=== PATIENT | male | born 1960 | race Caucasian/White ===

== ENCOUNTER 2018-10-30 08:07 | Inpatient (IN) | payer BC ==
[~2018-10-30 08:07] MED LIST: Acetaminophen 325 MG Tab PO SCH; EPINEPHrine 1 MG/ML SDV ONE; Lactated Ringers 1,000 ML IV SCH; Lidocaine 1%/Sod Bicarbonate in NS 8.4% 1 ML Syringe IDERM PRN; Midazolam 1 MG/ML 2 ML SDV ONE; Pregabalin 25 MG Cap PO SCH; Propofol 200 MG/20 ML SDV ONE; Ropivacaine 0.5% 5 MG/ML 30 ML SDV ONE; Sodium Chloride 0.9% 10 ML Syringe FLUSH PRN; fentaNYL 100 MCG/2 ML SDV ONE; oxyCODONE ER 10 MG TAB.ER PO SCH
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
[2018-10-30] MEDS ORDERED: Sennosides 8.6 MG Tab PO PRN (08:56)
[2018-10-30] MEDS ORDERED: Ketorolac 30 MG/ML SDV IVPUSH PRN (08:56)
[2018-10-30] MEDS ORDERED: Magnesium Hydroxide 400 MG/5 ML Susp 30 ML Cup PO PRN (08:56)
[2018-10-30] MEDS ORDERED: Docusate Sodium 100 MG Cap PO PRN (08:56)
[2018-10-30] MEDS ORDERED: Naloxone 0.4 MG/ML SDV IVPUSH PRN (08:56)
[2018-10-30] MEDS ORDERED: Ondansetron 4 MG/2 ML SDV IVPUSH PRN ×2 (08:56→10:28)
[2018-10-30] MEDS ORDERED: diphenhydrAMINE 50 MG/ML SDV IVPUSH PRN ×2 (08:56→10:28)
[2018-10-30] MEDS ORDERED: Bisacodyl 5 MG Tab PO PRN (08:56)
[2018-10-30] MEDS ORDERED: Cyclobenzaprine 10 MG Tab PO PRN (08:56)
[2018-10-30] MEDS ORDERED: ceFAZolin 1 GM Vial ONE (09:19)
[2018-10-30] MEDS: ceFAZolin 1 GM Vial ONE ×2 (09:44→10:02)
[2018-10-30] MEDS: Iodine/Sodium Iodide 2% Tincture 30 ML Bottle ONE ×2 (09:44→09:59)
[2018-10-30] MEDS: Morphine 8 MG, EPINEPHrine 0.3 MG, Cefuroxime 750 MG, Ketorolac 30 MG, Sodium Chloride ... ONE ×15 (09:45→12:51)
[2018-10-30] MEDS: Bupivacaine 0.25% 30 ML SDV ONE ×2 (09:46→10:10)
[2018-10-30] MEDS: Vancomycin 1 GM SDV ONE ×2 (09:46→10:11)
[2018-10-30] MEDS: Triamcinolone Acetonide 40 MG/ML 1 ML MDV ONE ×2 (09:47→10:33)
[2018-10-30] MEDS: Bupivacaine 0.25% 10 ML SDV ONE ×2 (09:48→10:33)
[2018-10-30] MEDS ORDERED: TADALAFIL 20 MG PO PRN (10:04)
[2018-10-30] MEDS ORDERED: Ketorolac 30 MG/ML SDV ONE (10:23)
[2018-10-30] MEDS ORDERED: fentaNYL 100 MCG/2 ML SDV IVPUSH PRN (10:28)
[2018-10-30] MEDS ORDERED: Meperidine 50 MG/ML Vial IVPUSH ONE (10:28)
--- NOTE | 2018-10-30 10:49 | PCM.POSTAN ---
POST ANESTHESIA ASSESSMENT - MENTAL STATUS Mental Status: Alert, Oriented - VITAL SIGNS Pulse Rate: 82 SaO2: 95 Resp Rate: 14 Blood Pressure: 108/70 Temperature: 36.7 C - RESPIRATORY Respiratory Status: Respiratory Rate WNL, Airway Patent, O2 Saturation Stable, Supplemental Oxygen - CARDIOVASCULAR CV Status: Pulse Rate WNL, Blood Pressure Stable - GASTROINTESTINAL GI Status: No Symptoms - PAIN Pain Score: 0 - POST OP HYDRATION Hydration Status: Adequate & Stable
--- NOTE | 2018-10-30 11:19 | PCM.SN ---
- Free Text/Narrative Note: Right ultrasound guided selective femoral nerve block at the adductor canal for post-procedure pain control Time Out: 1104 Start: 1108 End: 1111 Chart reviewed. Consent signed. Questions answered. Appropriate monitors applied. Time out performed. Right mid-shaft femur evaluated with ultrasound. Scanning medially femur, I was able to identify the femoral artery in the adductor canal. The saphenous nerve was lateral to the artery. The skin was prepped lateral to the ultrasound probe with chlorahexadine. The 21ga 4 insulated block needle was inserted under direct ultrasound guidance into the adductor canal. 20mL of 0.5% ropivacaine with 1:200,000 epinephrine was injected cirmcumferentially about the nerve with intermittent negative aspiration every 5mL. Patient tolerated the procedure well. See pictures on progress note and vital signs on nurses notes. Block completed postoperatively. Kody Valdes CRNA
--- NOTE | 2018-10-30 11:37 | CR ---
Right knee: AP and lateral portable views of the right knee were obtained. Comparison: No prior right knee exam. Knee prosthesis is seen. Components are aligned. Underlying bony structures are intact. Soft tissue air is noted from the surgical procedure. Impression: 1. Satisfactory postop radiographic appearance of recently placed right knee prosthesis. Diagnostic code #2
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
[2018-10-30] MEDS: ceFAZolin 2 GM in Premix Bag 1 BAG IV SCH (17:01)
[2018-10-30] MEDS: Acetaminophen/HYDROcodone 325-5 MG Tab PO PRN ×2 (17:03→23:50)
[2018-10-30] MEDS ORDERED: tiZANidine 4 MG Tab PO SCH (21:00)
[2018-10-30] MEDS ORDERED: Simvastatin 20 MG Tab PO SCH (21:00)
[2018-10-30] MEDS: Famotidine 20 MG Tab PO SCH (21:19)
[2018-10-31] MEDS: ceFAZolin 2 GM in Premix Bag 1 BAG IV SCH ×2 (01:56→08:45)
--- NOTE | 2018-10-31 06:30 | PCM.CONSN ---
- General Info Date of Service: 10/31/18 Admission Dx/Problem (Free Text): Admission Diagnosis/Problem Admission Diagnosis/Problem Arthritis of right knee Functional Status: Reports: Pain Controlled, Tolerating Diet, Ambulating, Urinating. Denies: New Symptoms - Review of Systems General: Reports: No Symptoms. Denies: Fever, Malaise, Chills HEENT: Reports: No Symptoms. Denies: Headaches, Sore Throat Pulmonary: Reports: No Symptoms. Denies: Shortness of Breath, Pleuritic Chest Pain, Cough, Sputum, Wheezing Cardiovascular: Reports: No Symptoms. Denies: Chest Pain, Palpitations, Dyspnea on Exertion, Lightheadedness Gastrointestinal: Reports: No Symptoms. Denies: Abdominal Pain, Constipation, Diarrhea, Nausea, Vomiting Genitourinary: Reports: No Symptoms. Denies: Pain Musculoskeletal: Reports: Leg Pain Skin: Reports: No Symptoms Neurological: Reports: No Symptoms Psychiatric: Reports: No Symptoms - Patient Data Vitals - Most Recent: Last Vital Signs Temp 97.9 F 10/31/18 04:55 Pulse 73 10/31/18 04:55 Resp 16 10/31/18 04:55 BP 103/67 10/31/18 04:55 Pulse Ox 95 10/31/18 04:55 Weight - Most Recent: 218 lb 8 oz I&O - Last 24 Hours: Intake & Output 10/30/18 10/30/18 10/31/18 14:59 22:59 06:59 Intake Total 651 532 0473 Balance [phone] Med Orders - Current: Current Medications Hydrocodone Bitart/Acetaminophen ([place] 325-5 Mg) 2 tab PO Q6H PRN PRN Reason: Pain Last Admin: 10/30/18 23:50 Dose: 2 tab Aspirin (Ecotrin) 325 mg PO BID [facility] Bisacodyl (Dulcolax) 10 mg PO DAILY PRN PRN Reason: Constipation Cyclobenzaprine HCl (Flexeril) 10 mg PO TID PRN PRN Reason: Muscle Spasm Diphenhydramine HCl (Benadryl) 25 mg IVPUSH Q4H PRN PRN Reason: Nausea Docusate Sodium (Colace) 100 mg PO BID PRN PRN Reason: Constipation Famotidine (Pepcid) 20 mg PO Q12H [facility] Last Admin: 10/30/18 21:19 Dose: 20 mg Cefazolin Sodium/Dextrose 2 gm (/ Premix) 50 mls @ 100 mls/hr IV Q8H [facility] Stop: 10/31/18 09:59 Last Admin: 10/31/18 01:56 Dose: 100 mls/hr Ketorolac Tromethamine (Toradol) 30 mg IVPUSH Q8H PRN PRN Reason: Pain Last Admin: 10/30/18 21:21 Dose: 30 mg Magnesium Hydroxide (Milk Of Magnesia) 30 ml PO BID PRN PRN Reason: Constipation Multivitamins (Thera) 1 each PO DAILY [facility] Naloxone HCl (Narcan) 0.1 mg IVPUSH Q5M PRN PRN Reason: Oversedation Ondansetron HCl (Zofran) 4 mg IVPUSH Q6H PRN PRN Reason: Nausea/Vomiting Fluticasone Propionate Nasal [place] 0 each NASBOTH DAILY PRN PRN Reason: as directed Ropinirole HCl (Requip) 4 mg PO DAILY [facility] Senna (Senna) 8.6 mg PO BID PRN PRN Reason: Constipation Simvastatin (Zocor) 20 mg PO BEDTIME [facility] Last Admin: 10/30/18 21:20 Dose: 20 mg Tizanidine HCl (Zanaflex) 4 mg PO BEDTIME [facility] Last Admin: 10/30/18 21:19 Dose: 4 mg Discontinued Medications Acetaminophen (Tylenol) 975 mg PO ONETIME [facility] Stop: 10/30/18 12:00 Last Admin: 10/30/18 08:22 Dose: 975 mg Bupivacaine HCl (Sensorcaine-Mpf 0.25%) Confirm Administered Dose 10 ml .ROUTE .STK-MED ONE Stop: 10/30/18 08:13 Last Admin: 10/30/18 10:33 Dose: 4 ml Bupivacaine HCl (Marcaine 0.25%) Confirm Administered Dose 30 ml .ROUTE .STK- MED ONE Stop: 10/30/18 08:13 Last Admin: 10/30/18 10:10 Dose: 30 ml Cefazolin Sodium (Ancef) Confirm Administered Dose 2 gm .ROUTE .STK-MED ONE Stop: 10/30/18 08:13 Last Admin: 10/30/18 10:02 Dose: 2 gm Cefazolin Sodium (Ancef) Confirm Administered Dose 2 gm .ROUTE .STK-MED ONE Stop: 10/30/18 09:20 Morphine Sulfate 8 mg/Epinephrine HCl 0.3 mg/Cefuroxime Sodium 750 mg/Ketorolac Tromethamine 30 mg/Sodium Chloride 17.9 ml 0 mg .XX ONETIME ONE Stop: 10/30/18 10:01 Last Admin: 10/30/18 12:51 Dose: Not Given Diphenhydramine HCl (Benadryl) 25 mg IVPUSH Q6H PRN PRN Reason: Pruritis Stop: 10/30/18 14:00 Epinephrine HCl (Adrenalin) Confirm Administered Dose 1 mg .ROUTE .STK-MED ONE Stop: 10/30/18 07:20 Fentanyl (Sublimaze) Confirm Administered Dose 100 mcg .ROUTE .STK-MED ONE Stop: 10/30/18 08:04 Fentanyl (Sublimaze) 50 mcg IVPUSH Q5M PRN PRN Reason: Pain Stop: 10/30/18 14:00 Lactated Ringer's (Ringers, Lactated) 1,000 mls @ 125 mls/hr IV ASDIRECTED [facility] Stop: 10/30/18 23:00 Last Admin: 10/30/18 08:25 Dose: 125 mls/hr Iodine (Iodine 2% Mild Tincture) Confirm Administered Dose 30 ml .ROUTE .STK- MED ONE Stop: 10/30/18 08:13 Last Admin: 10/30/18 09:59 Dose: 18 ml Ketorolac Tromethamine (Toradol) Confirm Administered Dose 30 mg .ROUTE .STK- MED ONE Stop: 10/30/18 10:24 Lidocaine/Sodium Bicarbonate (Buffered Lidocaine 1% In Ns 8.4%) 0.25 ml IDERM ONETIME PRN PRN Reason: Prior to IV Start Stop: 10/30/18 15:00 Last Admin: 10/30/18 08:52 Dose: 0.25 ml Meperidine HCl (Meperidine) 12.5 mg IVPUSH ONETIME ONE Stop: 10/30/18 10:29 Last Admin: 10/30/18 12:51 Dose: Not Given Midazolam HCl (Versed 1 Mg/Ml) Confirm Administered Dose 2 mg .ROUTE .STK-MED ONE Stop: 10/30/18 08:04 Non-Formulary Medication (Tadalafil [Cialis]) 20 mg PO ASDIRECTED PRN PRN Reason: prior to sexual activity Ondansetron HCl (Zofran) 4 mg IVPUSH ONETIME PRN PRN Reason: Nausea/Vomiting Stop: 10/30/18 14:00 Oxycodone HCl (Oxycontin) 10 mg PO ONETIME [facility] Stop: 10/30/18 18:00 Last Admin: 10/30/18 08:20 Dose: 10 mg Pregabalin (Lyrica) 50 mg PO ONETIME [facility] Stop: 10/30/18 15:00 Last Admin: 10/30/18 08:20 Dose: 50 mg Propofol (Diprivan 20 Ml) Confirm Administered Dose 600 mg .ROUTE .STK-MED ONE Stop: 10/30/18 08:04 Ropivacaine (Naropin 0.5%) Confirm Administered Dose 30 ml .ROUTE .STK-MED ONE Stop: 10/30/18 07:21 Sodium Chloride (Saline Flush) 10 ml FLUSH ASDIRECTED PRN PRN Reason: Keep Vein Open Stop: 10/30/18 18:00 Tranexamic Acid (Cyklokapron) Confirm Administered Dose 1,000 mg .ROUTE .STK- MED ONE Stop: 10/30/18 08:13 Last Admin: 10/30/18 10:15 Dose: 1,000 mg Triamcinolone Acetonide (Kenalog-40) Confirm Administered Dose 80 mg .ROUTE .STK -MED ONE Stop: 10/30/18 08:13 Last Admin: 10/30/18 10:33 Dose: 80 mg Vancomycin HCl (Vancomycin) Confirm Administered Dose 1 gm .ROUTE .STK-MED ONE Stop: 10/30/18 08:13 Last Admin: 10/30/18 10:11 Dose: 1 gm - Exam Quality Assessment: DVT Prophylaxis General: Alert, Oriented, Cooperative, No Acute Distress HEENT: Pupils Equal, Pupils Reactive, EOMI, Mucous Membr. Moist/[place] Neck: Supple, Trachea Midline, No JVD Lungs: Clear to Auscultation, Normal Respiratory Effort Cardiovascular: Regular Rate, Regular Rhythm GI/Abdominal Exam: Normal Bowel Sounds, Soft, Non-Tender, No Distention, No Abnormal Bruit (Male) Exam: Deferred Back Exam: Normal Inspection, Full Range of Motion Extremities: No Pedal Edema, Normal Capillary Refill, Leg Pain, Limited Range of Motion, Other (Bandage in place on right leg. Cooling pack in place. ) Peripheral Pulses: 2+: Radial (L), Radial (R), Dorsalis Pedis (L), Dorsalis Pedis (R) Skin: Warm, Dry, Intact Wound/Incisions: Dressing Dry and Intact, No Drainage Neurological: No New Focal Deficit Psy/Mental Status: Alert, Normal Affect, Normal Mood Consult PN Assessment/Plan POD#: 1 Procedures: Procedures CARDIOVASCULAR STRESS TEST (11/14/17) HT MUSCLE IMAGE SPECT MULT (11/14/17) (1) S/P total knee arthroplasty SNOMED Code(s): 8777634849063, 505169910, 2525122154818 Code(s): Z96.659 - PRESENCE OF UNSPECIFIED ARTIFICIAL KNEE JOINT Priority: High Current Visit: Yes Qualifiers: Laterality: right Qualified Code(s): Z96.651 - Presence of right artificial knee joint (2) New onset type 2 diabetes mellitus SNOMED Code(s): 81283552 Code(s): E11.9 - TYPE 2 DIABETES MELLITUS WITHOUT COMPLICATIONS Priority: High Current Visit: Yes (3) Tobacco use disorder SNOMED Code(s): 553366164 Code(s): F17.200 - NICOTINE DEPENDENCE, UNSPECIFIED, UNCOMPLICATED Priority : High Current Visit: Yes Problem List Initiated/Reviewed/Updated: Yes Plan: I/P: Acute: S/P right total knee arthoplasty- post-operative day 1 -DVT prophylaxis and pain management per primary care team -PT/OT -IS/RT -Monitor oxygen saturation -Titrate oxygen as needed -Vital signs stable -Monitor labs -Pre-operative Hgb 14.7; Now -Pre-operative eGFR 88; Now >60 S/P left knee steroid injection -Management per primary team Osteoarthritis -Pain management per primary team Tobacco Dependence -Current every day smoker -Smoking cessation counseling -Nicotine patch--> states he does not need New onset diabetes -Reports no history of high blood sugars, no diabetic history -Glucose this AM noted to be 259 -A1C obtained - 6.5% -Discussed starting metformin with Dr. Vidales. Would like to hold off until follow-up -Will need f/u with PCP -Will need outpatient emt/paramedic and diabetic ed consult Chronic: HLD JOSELITO GERD RLS TIA [id number] Laminectomy Back Pain Plan: CM for discharge planning Routine AM labs GI/DVT/PE prophylaxis Home medications as indicated Other orders as listed above Routine AM labs He is a full code. PCP is Dr. Cox. Overall from a hospitalist standpoint Doug is doing well. He has been ambulating and working with therapies. He has urinated and is off of oxygen. Pain is controlled. No nursing or patient concerns. He is cleared for discharge pending primary team and PT/OT agreement. We discussed his smoking status and he did request nicotine patches. This will be added to his discharge medications. He was given resources such as [facility] tobacco cessation and [place] [facility]. He is aware he will need to follow-up with his primary care for continued management. While here his blood sugars were noted to be very high as above. A1C was obtained and is 6.5%. Dr. Vidales was contacted and we discussed starting Doug on Metformin. Dr. Vidales suggested we have Doug follow-up with him and then he will re-check labs and set up appropriate follow- up. He will need to follow-up with Dr. Cox in 7-10 days. He will also need an outpatient surgical aide and emt/paramedic consult. Thank you for allowing us to participate in the care of this patient!
--- NOTE | 2018-10-31 08:30 | PCM48HPAN ---
Post Anesthesia Note - EVALUATION WITHIN 48HRS OF ANESTHETIC Vital Signs in Normal Range: Yes Patient Participated in Evaluation: Yes Respiratory Function Stable: Yes Airway Patent: Yes Cardiovascular Function Stable: Yes Hydration Status Stable: Yes Pain Control Satisfactory: Yes Nausea and Vomiting Control Satisfactory: Yes Mental Status Recovered: Yes - COMMENTS/OBSERVATIONS Free Text/Narrative:: Patient doing well resting in bed. Rested well last night. Pain in minimal ( rates 4-10). Feels that his block is still working yet.
[2018-10-31] MEDS: Famotidine 20 MG Tab PO SCH (08:41)
[2018-10-31 08:57] LABS: HEMOGLOBIN A1C 6.5 % (4.50-6.20)
[2018-10-31] MEDS ORDERED: Multivitamins,Therapeutic Tab PO SCH (09:00)
[2018-10-31] MEDS ORDERED: Aspirin 325 MG Tab.EC PO SCH (09:00)
[2018-10-31] MEDS ORDERED: rOPINIRole 1 MG Tab PO SCH (09:00)
[2018-10-31] MEDS: Acetaminophen/HYDROcodone 325-5 MG Tab PO PRN (11:40)
[2018-10-31] MEDS ORDERED: metFORMIN 500 MG Tab PO SCH (17:00)
--- NOTE | 2018-11-02 09:14 | PCM.OPNOTE ---
- General Post-Op/Procedure Note Date of Surgery/Procedure: 10/30/18 Operative Procedure(s): right total knee with left knee corticosteroid injection Pre Op Diagnosis: bilateral knee osteoarthrosis Post-Op Diagnosis: Same Anesthesia Technique: Local, MAC, Spinal Primary Surgeon: Naman Núñez Anesthesia Provider: Kody Valdes Certified Registered Nurse Anesthetist: Padma Damian EBL in mLs: 150 Complications: None Condition: Good Free Text/Narrative:: size 6 femur size 5 9mm 35x10
--- NOTE | 2018-11-02 10:39 | OR ---
DATE OF OPERATION: 10/30/2018 SURGEON: Naman Núñez MD OPERATION PERFORMED: Right total knee arthroplasty with left knee corticosteroid injection. PREOPERATIVE DIAGNOSIS: Bilateral knee osteoarthrosis. POSTOPERATIVE DIAGNOSIS: Bilateral knee osteoarthrosis. ANESTHESIA: Local MAC with spinal. ANESTHESIA PROVIDER: Kody Valdes. FREIGHT CALLER: Padma Damian LPN. ESTIMATED BLOOD LOSS: 150 mL. COMPLICATIONS: None. CONDITION: Stable. IMPLANT: 1. Sharon size 6 press-fit CR femur. 2. [place] size 5 press-fit tibial base plate. 3. Sharon size 9 mm CS polyethylene insert. 4. Sharon size 35 x 10 mm press-fit patella. DESCRIPTION OF PROCEDURE: The patient was identified in the preop holding area. Proper site was marked and identified by the surgeon. The patient was taken back to the operating theater. After adequate anesthesia, the patient's right lower extremity had a nonsterile tourniquet applied and it was sterilely prepped and draped in the usual sterile fashion. OR time-out was performed. The patient received 2 g IV Ancef. At this time, the right lower extremity was exsanguinated. Tourniquet was insufflated to 300 mmHg. Standard medial parapatellar incision was made. Medial parapatellar arthrotomy was created. Deep fibers of the MCL were raised and anterior fat pad was resected. At this time, attention was turned to the patella. Patella measured 24, it was resected to a 14 for 35 x 10 mm patella. Drill holes were then drilled and found to be in adequate position. The drill was then drilled in the distal femur and the intramedullary distal femoral cutting guide was then placed. 8 mm was resected off the distal femur and was found to be an adequate resection. Sizing guide was placed. It was found to be a size 6 press-fit CR femur that was shown on the implant record at the beginning of this dictation. The drill holes were drilled for the epicondylar axis using [place] line and epicondyles as reference. At this time, the 4-in - 1 cutting block was placed. An anterior posterior and anterior and posterior chamfer cuts were then completed. Attention was turned to the tibia. The posterior medial lateral retractors were placed. The extramedullary tibial guide was placed. It was placed in the old footprint of the ACL. It was aligned with the center of the ankle and 0 degrees of slope, 9 mm was then resected off the unaffected side. There was found to be an acceptable reduction. At this time, posterior osteophytes were removed along with medial and lateral meniscus. A trial implant was placed with a correct sized tibia that was mentioned at the beginning of the dictation. A [place] size 9 mm CS polyethylene insert was then placed. The patient's knee was brought through range of motion. The patella was tracking centrally and was stable to varus and valgus stress. Alignment was found to be roughly at 0 degrees. The tibia was stamped and drilled in proper rotation. The universal tibial base plate was impacted in place. Next, the Sharon size 6 press-fit CR femur impacted into place and the [place] size 9 mm CS polyethylene insert was placed. The patient's knee was brought into full extension. The patella was then press-fit in place at this time. Tourniquet was deflated. One liter dilute Betadine solution was irrigated through the knee along with 3 L of pulse lavage irrigation with Ancef. Periarticular injection was then completed. The patient's knee was brought through a range of motion. Knee was found to be stable to varus valgus stress, the patella was tracking centrally with full range of motion. At this time, a #2 barbed suture was used for closure of the medial parapatellar arthrotomy. Topical tranexamic acid was placed. 2-0 Vicryl was used subcutaneously, Prineo was used for the skin. The patient tolerated the procedure well and was sent to the PACU in stable condition. After this procedure was completed, the patient underwent a corticosteroid injection into the left knee. Under sterile technique, 2 mL of 40 mg Kenalog and 4 mL of 0.25% Marcaine were injected into the left knee. Patient tolerated that as well. KENDAL /[id number] TOBIAS
--- NOTE | 2018-11-02 14:47 | PCM.SURGPN ---
- General Info Date of Service: 10/31/18 POD#: 1 Functional Status: Reports: Pain Controlled, Tolerating Diet, Ambulating, Urinating, Incentive Spirometry - Patient Data Vitals - Most Recent: Last Vital Signs Temp 97.5 F 10/31/18 11:50 Pulse 77 10/31/18 11:50 Resp 20 10/31/18 11:50 BP 126/76 10/31/18 11:50 Pulse Ox 96 10/31/18 11:50 Weight - Most Recent: 218 lb 8 oz Med Orders - Current: Current Medications Discontinued Medications Acetaminophen (Tylenol) 975 mg PO ONETIME [facility] Stop: 10/30/18 12:00 Last Admin: 10/30/18 08:22 Dose: 975 mg Hydrocodone Bitart/Acetaminophen ([place] 325-5 Mg) 2 tab PO Q6H PRN PRN Reason: Pain Last Admin: 10/31/18 11:40 Dose: 2 tab Aspirin (Ecotrin) 325 mg PO BID [facility] Last Admin: 10/31/18 08:38 Dose: 325 mg Bisacodyl (Dulcolax) 10 mg PO DAILY PRN PRN Reason: Constipation Bupivacaine HCl (Sensorcaine-Mpf 0.25%) Confirm Administered Dose 10 ml .ROUTE .STK-MED ONE Stop: 10/30/18 08:13 Last Admin: 10/30/18 10:33 Dose: 4 ml Bupivacaine HCl (Marcaine 0.25%) Confirm Administered Dose 30 ml .ROUTE .STK- MED ONE Stop: 10/30/18 08:13 Last Admin: 10/30/18 10:10 Dose: 30 ml Cefazolin Sodium (Ancef) Confirm Administered Dose 2 gm .ROUTE .STK-MED ONE Stop: 10/30/18 08:13 Last Admin: 10/30/18 10:02 Dose: 2 gm Cefazolin Sodium (Ancef) Confirm Administered Dose 2 gm .ROUTE .STK-MED ONE Stop: 10/30/18 09:20 Morphine Sulfate 8 mg/Epinephrine HCl 0.3 mg/Cefuroxime Sodium 750 mg/Ketorolac Tromethamine 30 mg/Sodium Chloride 17.9 ml 0 mg .XX ONETIME ONE Stop: 10/30/18 10:01 Last Admin: 10/30/18 12:51 Dose: Not Given Cyclobenzaprine HCl (Flexeril) 10 mg PO TID PRN PRN Reason: Muscle Spasm Last Admin: 10/31/18 14:03 Dose: 10 mg Diphenhydramine HCl (Benadryl) 25 mg IVPUSH Q4H PRN PRN Reason: Nausea Diphenhydramine HCl (Benadryl) 25 mg IVPUSH Q6H PRN PRN Reason: Pruritis Stop: 10/30/18 14:00 Docusate Sodium (Colace) 100 mg PO BID PRN PRN Reason: Constipation Epinephrine HCl (Adrenalin) Confirm Administered Dose 1 mg .ROUTE .STK-MED ONE Stop: 10/30/18 07:20 Famotidine (Pepcid) 20 mg PO Q12H [facility] Last Admin: 10/31/18 08:41 Dose: 20 mg Fentanyl (Sublimaze) Confirm Administered Dose 100 mcg .ROUTE .STK-MED ONE Stop: 10/30/18 08:04 Fentanyl (Sublimaze) 50 mcg IVPUSH Q5M PRN PRN Reason: Pain Stop: 10/30/18 14:00 Lactated Ringer's (Ringers, Lactated) 1,000 mls @ 125 mls/hr IV ASDIRECTED [facility] Stop: 10/30/18 23:00 Last Admin: 10/30/18 08:25 Dose: 125 mls/hr Cefazolin Sodium/Dextrose 2 gm (/ Premix) 50 mls @ 100 mls/hr IV Q8H [facility] Stop: 10/31/18 09:59 Last Admin: 10/31/18 08:45 Dose: 100 mls/hr Iodine (Iodine 2% Mild Tincture) Confirm Administered Dose 30 ml .ROUTE .STK- MED ONE Stop: 10/30/18 08:13 Last Admin: 10/30/18 09:59 Dose: 18 ml Ketorolac Tromethamine (Toradol) 30 mg IVPUSH Q8H PRN PRN Reason: Pain Last Admin: 10/30/18 21:21 Dose: 30 mg Ketorolac Tromethamine (Toradol) Confirm Administered Dose 30 mg .ROUTE .STK- MED ONE Stop: 10/30/18 10:24 Lidocaine/Sodium Bicarbonate (Buffered Lidocaine 1% In Ns 8.4%) 0.25 ml IDERM ONETIME PRN PRN Reason: Prior to IV Start Stop: 10/30/18 15:00 Last Admin: 10/30/18 08:52 Dose: 0.25 ml Magnesium Hydroxide (Milk Of Magnesia) 30 ml PO BID PRN PRN Reason: Constipation Meperidine HCl (Meperidine) 12.5 mg IVPUSH ONETIME ONE Stop: 10/30/18 10:29 Last Admin: 10/30/18 12:51 Dose: Not Given Metformin HCl (Glucophage) 500 mg PO BIDMEALS [facility] Midazolam HCl (Versed 1 Mg/Ml) Confirm Administered Dose 2 mg .ROUTE .STK-MED ONE Stop: 10/30/18 08:04 Multivitamins (Thera) 1 each PO DAILY [facility] Last Admin: 10/31/18 08:45 Dose: Not Given Naloxone HCl (Narcan) 0.1 mg IVPUSH Q5M PRN PRN Reason: Oversedation Non-Formulary Medication (Tadalafil [Cialis]) 20 mg PO ASDIRECTED PRN PRN Reason: prior to sexual activity Ondansetron HCl (Zofran) 4 mg IVPUSH Q6H PRN PRN Reason: Nausea/Vomiting Ondansetron HCl (Zofran) 4 mg IVPUSH ONETIME PRN PRN Reason: Nausea/Vomiting Stop: 10/30/18 14:00 Oxycodone HCl (Oxycontin) 10 mg PO ONETIME [facility] Stop: 10/30/18 18:00 Last Admin: 10/30/18 08:20 Dose: 10 mg Fluticasone Propionate Nasal [place] 0 each NASBOTH DAILY PRN PRN Reason: as directed Pregabalin (Lyrica) 50 mg PO ONETIME [facility] Stop: 10/30/18 15:00 Last Admin: 10/30/18 08:20 Dose: 50 mg Propofol (Diprivan 20 Ml) Confirm Administered Dose 600 mg .ROUTE .STK-MED ONE Stop: 10/30/18 08:04 Ropinirole HCl (Requip) 4 mg PO DAILY [facility] Last Admin: 10/31/18 08:43 Dose: 4 mg Ropivacaine (Naropin 0.5%) Confirm Administered Dose 30 ml .ROUTE .STK-MED ONE Stop: 10/30/18 07:21 Senna (Senna) 8.6 mg PO BID PRN PRN Reason: Constipation Simvastatin (Zocor) 20 mg PO BEDTIME [facility] Last Admin: 10/30/18 21:20 Dose: 20 mg Sodium Chloride (Saline Flush) 10 ml FLUSH ASDIRECTED PRN PRN Reason: Keep Vein Open Stop: 10/30/18 18:00 Tizanidine HCl (Zanaflex) 4 mg PO BEDTIME [facility] Last Admin: 10/30/18 21:19 Dose: 4 mg Tranexamic Acid (Cyklokapron) Confirm Administered Dose 1,000 mg .ROUTE .STK- MED ONE Stop: 10/30/18 08:13 Last Admin: 10/30/18 10:15 Dose: 1,000 mg Triamcinolone Acetonide (Kenalog-40) Confirm Administered Dose 80 mg .ROUTE .STK -MED ONE Stop: 10/30/18 08:13 Last Admin: 10/30/18 10:33 Dose: 80 mg Vancomycin HCl (Vancomycin) Confirm Administered Dose 1 gm .ROUTE .STK-MED ONE Stop: 10/30/18 08:13 Last Admin: 10/30/18 10:11 Dose: 1 gm - Exam Wound/Incisions: Dressing Dry and Intact General: Alert, Cooperative, No Acute Distress Lungs: Normal Respiratory Effort Extremities: Other (NVS intact for RLE. Jocelyn's sign negative.) - Problem List Review Problem List Initiated/Reviewed/Updated: Yes - Assessment Assessment (Free Text/Narrative):: POD#1 - right TKA with left knee cortisone injection - Plan Plan (Free Text/Narrative):: 1. Hgb 13.0. 2. ASA PO as directed. 3. Discharge to home today. 4. Outpatient therapy. The pt was evaluated by Dr. Núñez today.
--- NOTE | 2018-11-02 14:49 | PCM.DCSUM1 ---
Discharge Summary - Hospital Course Brief History: Doug is a 57 yo male who underwent right TKA with left knee cortisone injection with Dr. Núñez on 10-30-2018. The procedure was completed under spinal anesthesia. The pt tolerated the procedure well and was admitted to the Medical-Surgical Unit. Medical management was provided by the Hospitalist service. The pt's Hospital course was uneventful. The pt's Hgb on POD#1 was 13.0. On POD#1, 325mg ASA was initiated for VTE prophylaxis. SCDs and TEDs were also ordered. A Mepilex dressing was placed at the incision site at the time of surgery and remained clean and dry. The pt participated in P.T. and O.T. and progressed well. The pt was allowed to WBAT. On POD#1, the pt was deemed appropriate to discharge to home with his . Diagnosis: Stroke: No - Discharge Data Discharge Date: 10/31/18 Discharge Disposition: Home, Self-Care 01 Condition: Good - Patient Summary/Data Operative Procedure(s) Performed: right total knee with left knee corticosteroid injection Consults: Consultations 10/30/18 08:56 Consult to Case Management/Window Trimmer [CONS] Routine Consult to Physician [CONS] Routine OT Evaluation and Treatment [CONS] Routine 10/30/18 08:59 PT Evaluation and Treatment [CONS] Routine - Patient Instructions Diet: Usual Diet as Tolerated Activity: Apply Ice, As Tolerated, Elevate Extremity, Full Weight Bearing Driving: Do Not Drive Showering/Bathing: May Shower Wound/Incision Care: Keep Operative Site/Wound Site Clean and Dry, Do NOT Change Dressing Notify Provider of: Fever, Increased Pain, Swelling and Redness, Drainage, Nausea and/or Vomiting Other/Special Instructions: Please get up and moving around EVERY HOUR while awake. This helps to prevent blood clots. Please use your walker and have help with mobility as needed. Take a short walk in your home every hour while awake. Please take 325mg Aspirin TWICE daily. The aspirin is being used for blood clot prevention and not for pain management so please do not miss a dose of the medication. You could use a medication like Zantac or Pepcid and a medication like Prilosec or Nexium to protect your stomach while you are using the aspirin. At home, please complete the exercises that you learned during the Hospital stay. Schedule for physical therapy. Use the pain medication as needed. The medication may cause drowsiness and constipation. Contact your primary care provider for instructions if you are constipated. You may use a stool softener like docusate sodium or Colace 100mg twice daily and/or a laxative like Miralax daily for constipation. Increase your water and fiber intake while you are using the pain medication. Discontinue use of the pain medication as soon as able. Please do not use other medications that may cause drowsiness (other pain medications, anxiety pills, cold medications, sleeping pills, etc) while using the prescription pain medication. Do not use alcohol while using the pain medication. Wear the BEATRIZ hose during the day and you may remove these at night. Elevate the limb to decrease swelling. Place ice to the area often. Place a towel between your skin and the blue pad. Use the incentive spirometer often. Take deep breaths throughout the day. Please keep the dressing in place until follow-up. Notify the Clinic if the dressing becomes saturated. Increase your protein intake while you are healing. If you have diabetes, please closely monitor your blood sugars and notify your primary care provider with abnormal values. Elevated blood sugars increases the risk of infection. Call the Clinic with questions or concerns - [phone]. Follow- up with PCP, Dr. Vidales, within 7-10 days of discharge regarding new onset diabetes. Recommend seeing outpatient clinical trial educator and chief dispatcher service. This can be set-up with Dr. Vidales. - Discharge Plan *PRESCRIPTION DRUG MONITORING PROGRAM REVIEWED*: No *COPY OF PRESCRIPTION DRUG MONITORING REPORT IN PATIENT GUMARO: No Prescriptions/Med Rec: Nicotine [Habitrol] 14 mg TOP DAILY #20 patch Home Medications: Home Meds Aspirin 325 mg PO DAILY 10/27/18 [History] Fluticasone Propionate [Flonase] 1 dose NASBOTH DAILY PRN 10/27/18 [History] Hydrocodone/Acetaminophen [[place] 5-325 Tablet] 1 tab PO Q6H PRN 10/27/18 [ History] Multivitamin [Multiple Vitamins] 1 tab PO DAILY 10/27/18 [History] Omeprazole 20 mg PO DAILY 10/27/18 [History] Tadalafil [Cialis] 20 mg PO ASDIRECTED PRN 10/27/18 [History] atorvaSTATin Calcium [Atorvastatin Calcium] 20 mg PO DAILY 10/27/18 [History] rOPINIRole HCl [Requip] 4 mg PO DAILY 10/27/18 [History] tiZANidine [Zanaflex] 4 mg PO BEDTIME 10/27/18 [History] Nicotine [Habitrol] 14 mg TOP DAILY #20 patch 10/31/18 [Rx] Oxygen Therapy Mode: Room Air Patient Handouts: Total Knee Replacement, Care After, [id number] Referrals: Dawna Ken PA-C [Physician [employer]] - (please attend the scheduled follow up appointments as scheduled with Dawna Ken on 11/08/18 at 230pm and 11/14/18 at 300pm) Lucas Vidales MD [Primary Care Provider] - 11/14/18 1:45 pm (please attend the scheduled follow up appointment with your primary care provider) - Discharge Summary/Plan Comment DC Time >30 min.: No - Patient Data Vitals - Most Recent: Last Vital Signs Temp 97.5 F 10/31/18 11:50 Pulse 77 10/31/18 11:50 Resp 20 10/31/18 11:50 BP 126/76 10/31/18 11:50 Pulse Ox 96 10/31/18 11:50 Weight - Most Recent: 218 lb 8 oz Med Orders - Current: Current Medications Discontinued Medications Acetaminophen (Tylenol) 975 mg PO ONETIME [facility] Stop: 10/30/18 12:00 Last Admin: 10/30/18 08:22 Dose: 975 mg Hydrocodone Bitart/Acetaminophen ([place] 325-5 Mg) 2 tab PO Q6H PRN PRN Reason: Pain Last Admin: 10/31/18 11:40 Dose: 2 tab Aspirin (Ecotrin) 325 mg PO BID [facility] Last Admin: 10/31/18 08:38 Dose: 325 mg Bisacodyl (Dulcolax) 10 mg PO DAILY PRN PRN Reason: Constipation Bupivacaine HCl (Sensorcaine-Mpf 0.25%) Confirm Administered Dose 10 ml .ROUTE .STK-MED ONE Stop: 10/30/18 08:13 Last Admin: 10/30/18 10:33 Dose: 4 ml Bupivacaine HCl (Marcaine 0.25%) Confirm Administered Dose 30 ml .ROUTE .STK- MED ONE Stop: 10/30/18 08:13 Last Admin: 10/30/18 10:10 Dose: 30 ml Cefazolin Sodium (Ancef) Confirm Administered Dose 2 gm .ROUTE .STK-MED ONE Stop: 10/30/18 08:13 Last Admin: 10/30/18 10:02 Dose: 2 gm Cefazolin Sodium (Ancef) Confirm Administered Dose 2 gm .ROUTE .STK-MED ONE Stop: 10/30/18 09:20 Morphine Sulfate 8 mg/Epinephrine HCl 0.3 mg/Cefuroxime Sodium 750 mg/Ketorolac Tromethamine 30 mg/Sodium Chloride 17.9 ml 0 mg .XX ONETIME ONE Stop: 10/30/18 10:01 Last Admin: 10/30/18 12:51 Dose: Not Given Cyclobenzaprine HCl (Flexeril) 10 mg PO TID PRN PRN Reason: Muscle Spasm Last Admin: 10/31/18 14:03 Dose: 10 mg Diphenhydramine HCl (Benadryl) 25 mg IVPUSH Q4H PRN PRN Reason: Nausea Diphenhydramine HCl (Benadryl) 25 mg IVPUSH Q6H PRN PRN Reason: Pruritis Stop: 10/30/18 14:00 Docusate Sodium (Colace) 100 mg PO BID PRN PRN Reason: Constipation Epinephrine HCl (Adrenalin) Confirm Administered Dose 1 mg .ROUTE .STK-MED ONE Stop: 10/30/18 07:20 Famotidine (Pepcid) 20 mg PO Q12H [facility] Last Admin: 10/31/18 08:41 Dose: 20 mg Fentanyl (Sublimaze) Confirm Administered Dose 100 mcg .ROUTE .STK-MED ONE Stop: 10/30/18 08:04 Fentanyl (Sublimaze) 50 mcg IVPUSH Q5M PRN PRN Reason: Pain Stop: 10/30/18 14:00 Lactated Ringer's (Ringers, Lactated) 1,000 mls @ 125 mls/hr IV ASDIRECTED [facility] Stop: 10/30/18 23:00 Last Admin: 10/30/18 08:25 Dose: 125 mls/hr Cefazolin Sodium/Dextrose 2 gm (/ Premix) 50 mls @ 100 mls/hr IV Q8H [facility] Stop: 10/31/18 09:59 Last Admin: 10/31/18 08:45 Dose: 100 mls/hr Iodine (Iodine 2% Mild Tincture) Confirm Administered Dose 30 ml .ROUTE .STK- MED ONE Stop: 10/30/18 08:13 Last Admin: 10/30/18 09:59 Dose: 18 ml Ketorolac Tromethamine (Toradol) 30 mg IVPUSH Q8H PRN PRN Reason: Pain Last Admin: 10/30/18 21:21 Dose: 30 mg Ketorolac Tromethamine (Toradol) Confirm Administered Dose 30 mg .ROUTE .STK- MED ONE Stop: 10/30/18 10:24 Lidocaine/Sodium Bicarbonate (Buffered Lidocaine 1% In Ns 8.4%) 0.25 ml IDERM ONETIME PRN PRN Reason: Prior to IV Start Stop: 10/30/18 15:00 Last Admin: 10/30/18 08:52 Dose: 0.25 ml Magnesium Hydroxide (Milk Of Magnesia) 30 ml PO BID PRN PRN Reason: Constipation Meperidine HCl (Meperidine) 12.5 mg IVPUSH ONETIME ONE Stop: 10/30/18 10:29 Last Admin: 10/30/18 12:51 Dose: Not Given Metformin HCl (Glucophage) 500 mg PO BIDMEALS [facility] Midazolam HCl (Versed 1 Mg/Ml) Confirm Administered Dose 2 mg .ROUTE .STK-MED ONE Stop: 10/30/18 08:04 Multivitamins (Thera) 1 each PO DAILY [facility] Last Admin: 10/31/18 08:45 Dose: Not Given Naloxone HCl (Narcan) 0.1 mg IVPUSH Q5M PRN PRN Reason: Oversedation Non-Formulary Medication (Tadalafil [Cialis]) 20 mg PO ASDIRECTED PRN PRN Reason: prior to sexual activity Ondansetron HCl (Zofran) 4 mg IVPUSH Q6H PRN PRN Reason: Nausea/Vomiting Ondansetron HCl (Zofran) 4 mg IVPUSH ONETIME PRN PRN Reason: Nausea/Vomiting Stop: 10/30/18 14:00 Oxycodone HCl (Oxycontin) 10 mg PO ONETIME [facility] Stop: 10/30/18 18:00 Last Admin: 10/30/18 08:20 Dose: 10 mg Fluticasone Propionate Nasal Tensed 0 each NASBOTH DAILY PRN PRN Reason: as directed Pregabalin (Lyrica) 50 mg PO ONETIME [facility] Stop: 10/30/18 15:00 Last Admin: 10/30/18 08:20 Dose: 50 mg Propofol (Diprivan 20 Ml) Confirm Administered Dose 600 mg .ROUTE .STK-MED ONE Stop: 10/30/18 08:04 Ropinirole HCl (Requip) 4 mg PO DAILY [facility] Last Admin: 10/31/18 08:43 Dose: 4 mg Ropivacaine (Naropin 0.5%) Confirm Administered Dose 30 ml .ROUTE .STK-MED ONE Stop: 10/30/18 07:21 Senna (Senna) 8.6 mg PO BID PRN PRN Reason: Constipation Simvastatin (Zocor) 20 mg PO BEDTIME [facility] Last Admin: 10/30/18 21:20 Dose: 20 mg Sodium Chloride (Saline Flush) 10 ml FLUSH ASDIRECTED PRN PRN Reason: Keep Vein Open Stop: 10/30/18 18:00 Tizanidine HCl (Zanaflex) 4 mg PO BEDTIME [facility] Last Admin: 10/30/18 21:19 Dose: 4 mg Tranexamic Acid (Cyklokapron) Confirm Administered Dose 1,000 mg .ROUTE .STK- MED ONE Stop: 10/30/18 08:13 Last Admin: 10/30/18 10:15 Dose: 1,000 mg Triamcinolone Acetonide (Kenalog-40) Confirm Administered Dose 80 mg .ROUTE .STK -MED ONE Stop: 10/30/18 08:13 Last Admin: 10/30/18 10:33 Dose: 80 mg Vancomycin HCl (Vancomycin) Confirm Administered Dose 1 gm .ROUTE .STK-MED ONE Stop: 10/30/18 08:13 Last Admin: 10/30/18 10:11 Dose: 1 gm
== END 2018-10-31 14:10 | disposition home or self-care (01) | DRG 302 ==
LOC: JD.MS 08:07 → EDSTATUS 12:45
PROVIDERS: ADMIT Orthopaedic Surgery; ATTEND Orthopaedic Surgery
PROC: 3E0U3BZ Introduction of Anesthetic Agent into Joints, Percutaneous Approach (ICD-10-PCS; principal; 2018-10-30)
PROC: 3E0U33Z Introduction of Anti-inflammatory into Joints, Percutaneous Approach (ICD-10-PCS; principal; 2018-10-30)
PROC: 0SRC0JA Replacement of Right Knee Joint with Synthetic Substitute, Uncemented, Open Approach (ICD-10-PCS; principal; 2018-10-30)
PROC: 3E0T3BZ Introduction of Anesthetic Agent into Peripheral Nerves and Plexi, Percutaneous Approach (ICD-10-PCS; 2018-10-30)
DX: M17.0 Bilateral primary osteoarthritis of knee (principal); G25.81 Restless legs syndrome; K21.9 Gastro-esophageal reflux disease without esophagitis; M25.761 Osteophyte, right knee; G89.29 Other chronic pain; F17.210 Nicotine dependence, cigarettes, uncomplicated; G47.33 Obstructive sleep apnea (adult) (pediatric); E78.00 Pure hypercholesterolemia, unspecified; G89.18 Other acute postprocedural pain; M54.40 Lumbago with sciatica, unspecified side; E78.5 Hyperlipidemia, unspecified; Z86.73 Personal history of transient ischemic attack (TIA), and cerebral infarction without residual deficits; Z79.82 Long term (current) use of aspirin; Z79.899 Other long term (current) drug therapy; Z98.1 Arthrodesis status
CPT/HCPCS: 01402; 36415; 64450; 73560-26-RT; 73560-RT; 80053; 83036; 85025; 87641; 97110-GP; 97116-GP; 97162-GP; 97165-GO; 97535-GO; A9270-GY; C1776; J0171; J0690; J0697; J1885; J2250; J2270; J2704; J2795; J3010; J3301; J3370; J3490; J7120

== ENCOUNTER 2021-12-07 07:53 | Day surgery (SDC) | payer BC ==
[~2021-12-07 07:53] MED LIST changes: -EPINEPHrine 1 MG/ML SDV ONE; -Midazolam 1 MG/ML 2 ML SDV ONE; +Morphine 8 MG, EPINEPHrine 0.3 MG, Cefuroxime 750 MG, Ketorolac 30 MG, Sodium Chloride ... PRN; -Propofol 200 MG/20 ML SDV ONE; -Ropivacaine 0.5% 5 MG/ML 30 ML SDV ONE; +Sodium Chloride 0.9% 10 ML Syringe FLUSH SCH; -fentaNYL 100 MCG/2 ML SDV ONE
[2021-12-07] MEDS ORDERED: Ondansetron 4 MG/2 ML SDV IVPUSH PRN (07:57)
[2021-12-07] MEDS ORDERED: fentaNYL 100 MCG/2 ML SDV IVPUSH PRN (07:57)
[2021-12-07] MEDS ORDERED: HYDROmorphone 0.5 MG/0.5 ML Syringe IVPUSH PRN (07:57)
[2021-12-07] MEDS ORDERED: Propofol 200 MG/20 ML SDV ONE ×3 (08:24→10:19)
[2021-12-07] MEDS ORDERED: Lidocaine 1% 4 ML ONE (08:24)
[2021-12-07] MEDS ORDERED: ceFAZolin 1 GM Vial ONE (08:27)
[2021-12-07] MEDS ORDERED: Ondansetron 4 MG/2 ML SDV ONE (08:28)
[2021-12-07] MEDS ORDERED: Midazolam 1 MG/ML 2 ML SDV ONE (08:29)
[2021-12-07] MEDS ORDERED: Vancomycin 1 GM SDV ONE (08:34)
[2021-12-07] MEDS ORDERED: Lactated Ringers 1,000 ML ONE (10:13)
[2021-12-07] MEDS ORDERED: Cyclobenzaprine 10 MG Tab PO PRN (10:29)
[2021-12-07] MEDS ORDERED: oxyCODONE 5 MG Tab PO PRN (10:29)
[2021-12-07] MEDS ORDERED: EPINEPHrine 1 MG/ML SDV ONE (11:21)
[2021-12-07] MEDS ORDERED: Ropivacaine 0.5% 5 MG/ML 30 ML SDV ONE (11:21)
== END 2021-12-07 15:19 | disposition home or self-care (01) ==
LOC: JD.SDS 07:53
PROVIDERS: ATTEND Orthopaedic Surgery
DX: M17.12 Unilateral primary osteoarthritis, left knee (principal); G25.81 Restless legs syndrome; I25.10 Atherosclerotic heart disease of native coronary artery without angina pectoris; E78.5 Hyperlipidemia, unspecified; E11.9 Type 2 diabetes mellitus without complications; F17.210 Nicotine dependence, cigarettes, uncomplicated; G47.33 Obstructive sleep apnea (adult) (pediatric); Z79.899 Other long term (current) drug therapy; Z79.82 Long term (current) use of aspirin; Z98.890 Other specified postprocedural states; Z86.73 Personal history of transient ischemic attack (TIA), and cerebral infarction without residual deficits
CPT/HCPCS: 27447; 73560; 97110; 97116; 97161; A9270; C1713; C1776; J0171; J0690; J0697; J1885; J2250; J2270; J2405; J2704; J2795; J3370; J7120; 01402; 64447; 76942

== ENCOUNTER 2023-06-05 13:23 | Emergency (ER) | payer BC ==
[2023-06-05] MEDS ORDERED: Sodium Chloride 0.9% 10 ML Syringe FLUSH PRN (13:27)
[2023-06-05 13:40] LABS: BASOPHILS ABSOLUTE AUTO 0.1 K/mm3 (0.0-0.2); BASOPHILS PERCENT AUTO 0.6 % (0.0-1.0); EOSINOPHILS ABSOLUTE AUTO 0.2 K/mm3 (0.0-0.4); EOSINOPHILS PERCENT AUTO 1.9 % (0.0-6.0); HEMOGLOBIN 14.3 gm/dl (14.0-18.0); IMMATURE GRAN ABSOLUTE AUTO 0.13 K/mm3 (0.00-0.05); IMMATURE GRAN PERCENT AUTO 1.5 % (0.0-0.4); LYMPHOCYTES ABSOLUTE AUTO 1.9 K/mm3 (1.0-4.8); LYMPHOCYTES PERCENT AUTO 21.4 % (24.0-44.0); MEAN CORPUSCULAR HEMOGLOBIN 30.6 pg (28.0-32.0); MEAN CORPUSCULAR VOLUME 89.7 fl (83.0-99.0); MEAN PLATELET VOLUME 9.4 fl (9.4-12.4); MONOCYTES ABSOLUTE AUTO 0.6 K/mm3 (0.0-0.8); MONOCYTES PERCENT AUTO 6.6 % (0.0-8.0); NEUTROPHILS ABSOLUTE AUTO 6.1 K/mm3 (1.8-7.7); PLATELET COUNT,PLT 193 K/mm3 (150-400); RED BLOOD CELL COUNT 4.68 M/mm3 (4.52-5.90); WHITE BLOOD CELL COUNT,WBC 8.96 K/mm3 (3.9-11.3)
[2023-06-05 14:06] LABS: ALBUMIN 4.1 g/dl (3.4-5.0); BILIRUBIN TOTAL 0.5 mg/dL (0.2-1.0); BUN/CREATININE RATIO 16.4 (14-18); CALCIUM 9.2 mg/dL (8.5-10.1); CREATININE 1.1 mg/dL (0.7-1.3); EST CRCL DRUG DOSING (CG) 78.38 mL/min; PROTEIN TOTAL,TP 8.2 g/dl (6.4-8.2)
[2023-06-05] MEDS ORDERED: Acetaminophen/HYDROcodone 325-5 MG Tab PO ONE (14:59)
== END 2023-06-05 15:30 | disposition home or self-care (01) ==
LOC: JD.ED 13:23
DX: S09.90XA Unspecified injury of head, initial encounter (principal); S50.01XA Contusion of right elbow, initial encounter; S70.01XA Contusion of right hip, initial encounter; E78.00 Pure hypercholesterolemia, unspecified; K21.9 Gastro-esophageal reflux disease without esophagitis; M19.90 Unspecified osteoarthritis, unspecified site; Z79.01 Long term (current) use of anticoagulants; Z79.82 Long term (current) use of aspirin; Z79.899 Other long term (current) drug therapy; W19.XXXA Unspecified fall, initial encounter
CPT/HCPCS: 36415; 70450; 71045; 72125; 73080; 73502; 73630; 80053; 83690; 85025; 99285; A9270; 99284